=== PATIENT | female | born 1960 | race African-American/Black ===

== ENCOUNTER 2019-08-05 09:39 | Day surgery (SDC) | payer OTHER ==
[~2019-08-05 09:39] MED LIST: CEFAZOLIN SODIUM 2 GM in DEXTROSE 5%-WATER 100 ML IV PRN
[2019-08-05] MEDS ORDERED: BUPIVACAINE HCL 0.5 % INJ/PF 30 ML SDV ONE (10:07)
[2019-08-05] MEDS ORDERED: FENTANYL CITRATE INJ/PF 100 MCG/2 ML AMPUL ONE (10:12)
[2019-08-05] MEDS ORDERED: PROPOFOL INJ 200 MG/20 ML VIAL IV ONE ×2 (10:13→12:40)
[2019-08-05] MEDS ORDERED: ONDANSETRON HCL INJ/PF 4 MG/2 ML SDV ONE (10:13)
[2019-08-05] MEDS ORDERED: MIDAZOLAM 2 MG/2 ML INJ ONE (10:13)
[2019-08-05] MEDS ORDERED: DIPHENHYDRAMINE HCL 50 MG/ML VIAL IV PRN (12:51)
[2019-08-05] MEDS ORDERED: MEPERIDINE HCL/PF INJ 25 MG/1 ML DISP.SYRIN IV PRN (12:51)
[2019-08-05] MEDS ORDERED: OXYCODONE-ACETAMINOPHEN 5-325 MG TABLET PO PRN ×3 (12:51→14:23)
[2019-08-05] MEDS ORDERED: PROMETHAZINE HCL INJ 25 MG/1 ML VIAL IV PRN ×2 (12:51)
[2019-08-05] MEDS ORDERED: FENTANYL CITRATE INJ/PF 100 MCG/2 ML AMPUL IV PRN ×3 (12:51)
[2019-08-05] MEDS ORDERED: MORPHINE SULFATE 10 MG/ML INJ IV PRN (12:51)
--- NOTE | 2019-08-05 13:59 | Discharge Summary ---
Discharge Summary (SDC) - Discharge Final Diagnosis: Left distal radius fracture Date of Surgery: 08/05/19 Discharge Date: 08/05/19 Condition: Good Treatment or Instructions: Schedule Follow Up w/ Dr. Cr Cheng @ [facility] for Surgery to be seen in 10-14 days or as scheduled [place]: [place]: [place]: Vitamin C 500 mg for 51 days. Ice and elevate Keep splint clean/dry/intact, do not remove. If your fingers become numb please unwrap the [place] wrap but leave the splint in place, if the sensation does not return within 30 minutes please return to the emergency department. May begin finger range of motion attempting to make full fist. Please use ibuprofen (Motrin or Advil) 600-800 mg every 8 hours as needed for pain or fever DO NOT TAKE w/ TORADOL may use once TORADOL complete. You may also use acetaminophen (Tylenol) 1000 mg every 4-6 hours as needed for pain or fever. Please be aware that many medications contain acetaminophen, do not exceed a total of 1000 mg of acetaminophen every 6 hours. If ibuprofen and acetaminophen are not sufficient for your pain you may take the Percocet/Bayard. Please be aware that the Percocet/Bayard does contain Tylenol. Stool softener of choice when on pain medication. USE OF [id number] IBUPROFEN: Ibuprofen (Advil, Nuprin, Medipren, Motrin IB) is a medication for fever and pain control. In addition, it has anti- inflammatory effects which may be beneficial, especially in the treatment of injuries. It's best to take ibuprofen with food. Persons with ulcer disease or allergy to aspirin should notify their physician of this before taking ibuprofen. Ibuprofen can be given every four to six hours, for a total of four doses daily. Age Pain or fever dose Antiinflammatory dose 6-8 yr 200 mg (1 tab) 200 mg (1 tab) 9-11 yr 200 mg (1 tab) 200-400 mg (1-2 tab) 11-14 yr 200-400 mg (1-2 tab) 400 mg (2 tab) 15-adult 400 mg (2 tab) 600 mg (3 tab) ORAL NARCOTIC MEDICATION: You have been given a prescription for pain control. This medication is a narcotic. It's best taken with food, as nausea can result if taken on an empty stomach. Don't operate machinery or drive within six hours of taking this medicati on. Do not combine this medicine with alcohol, or with any medication which can cause sedation (such as cold tablets or sleeping pills) unless you get permission from the physician. Narcotics tend to cause constipation. If possible, drink plenty of fluids and eat a diet high in fiber and fruits. Please be aware that prescription narcotics also have the potential for abuse. People become addicted to these medications because of the general sense of wellbeing that they induce. This feeling along with a significant reduction in tension, anxiety, and aggression provides a stimulating seductive quality to these drugs. Once your pain is under control, we encourage you to discard your unused narcotics. Prescriptions: Oxycodone HCl/Acetaminophen [Percocet 7.5-325 mg Tablet] 1 tab PO Q6 PRN #25 tab PRN Reason: Discharge Diet: As Tolerated Respiratory Treatments at Home: Deep Breathing/Coughing Discharge Activity: No Lifting Over 10 Pounds, No Lifting/Push/Pulling Report the Following to Your Physician Immediately: Fever over 101 Degrees, Unusual Bleeding, Redness, Swelling, Warmth, Increased Soreness
--- NOTE | 2019-08-05 14:04 | Operative Report ---
Operative Report DATE OF SURGERY: 08/05/19 PREOPERATIVE DIAGNOSIS: Left extra-articular distal radius fracture POSTOPERATIVE DIAGNOSIS: Same DRUJ instability with TFCC tear OPERATION: ORIF left extra-articular distal radius fracture. Open TFCC repair left wrist SURGEON: DANA SANCHES ANESTHESIA: IV-Regional COMPLICATIONS: None ESTIMATED BLOOD LOSS: Minimal PROCEDURE: Indication for above procedure: 59-year-old female who sustained a fall onto her left wrist at the store. Patient had radiographs confirming distal radius fracture. Conservative measures was attempted including close reduction and casting which initially demonstrated maintained alignment but patient's fracture continue to demonstrate radial collapse with loss of inclination at that point decision was made to proceed with operative intervention. Procedure In Detail: Patient was seen and evaluated in the preoperative holding area. The LEFT upper extremity was initialized and marked. Patient received 2g of Ancef IV for bacterial prophylaxis. Patient was given a regional block in the preoperative wound area. Patient was taken back to the operative room where transferred to the operative table and placed under anesthesia. Once they were adequately anesthetized and a nonsterile tourniquet was placed on his upper extremity. A surgical team debriefing was performed ensuring all instrumentation was available, the surgical procedure was discussed with possible concerns reviewed. The upper extremity was prepped with chlorhexidine and alcohol and draped in a sterile fashion. A timeout was done identifying correct patient, procedure and extremity everyone in attendance agree with this and verbalized no concerns.The extremity was exsanguinated the tourniquet was inflated to 250 mmHg. A longitudinal skin incision was made via a volar approach of [place]loan along the FCR tendon sheath. The FCR tendon sheath was opened and the FCR retracted ulnarly, the palmar cutaneous branch of the median nerve was identified and protected throughout the entirety of the case. The radial artery was identified and retracted radially. Blunt dissection was performed to the FPL which was carefully sweeped ulnarly. This brought me to the pronator quadratus which was elevated off of the distal radius via sharp dissection with a 15 blade to allow later repair. There was evidence of healing of the fracture and thus osteoclasis was performed distal radius produced and provisionally fixed with K wires. Acceptable reduction was then obtained and a Acumed 3 hole volar distal radius plate was placed into position and fixated with a K wire distally x2. AP and lateral radiographs were then obtained demonstrating appropriate placement of the plate and acceptable reduction of the fracture. Using a reduction tenaculum I was able to bring the plate down to bone distally. After drilling distally a cortical screw was used bringing the plate further down to bone, avoiding any liftoff of the plate from the volar cortex that could cause flexor tendon irritation post-operativley. Drilling the near cortex and to but not thru the far cortex a locking screw was then placed in the remaining holes. The previous cortex screw was removed and replaced with a locking screw. Two additional screws were placed into the styloid giving further stability to the radial styloid piece. AP and lateral radius were then done confirming appropriate placement of plate with no evidence of penetration intra-articular or within the DRUJ. I then turned my attention to the proximal screws. I drilled bicortically bringing the plate down to bone with a cortex screw. The remaining 2 holes proximally were drilled bicortically placing the appropriate size cortex in the proximal most hole and a locking screw in the distal shaft hole. AP and lateral radiographs were done confirming appropriate placement of the plate and reduction of the fracture there was orthodox of radial height, radial inclination and volar tilt. No evidence of dorsal screw prominence or intra-articular penetration of the DRUJ or radiocarpal joint. The wound was copiously irrigated with normal saline. Intraoperative examination demonstrated negative Petty's test, No crepitus with range of motion at the radiocarpal joint or DRUJ. There was evidence of DRUJ instability compared to noninvolved right wrist and thus decision was made to proceed with TFCC repair. Longitudinal skin incision was made between the fifth and sixth dorsal compartment. Dorsal ulnar sensory branch was identified and retracted. Interval between the fifth and sixth dorsal compartment was utilized and capsule identified. T-shaped capsulotomy was made and the TFCC tear including the ligamentum subcruentum was identified. Under C arm fluoroscopy the ulnar fovea was confirmed including under direct visualization. A Arthrex 2.4 mm suture tack was utilized. The TFCC was then repaired with Santiago-Wu suture which did provide instability to the DRUJ. Capsule was closed with interrupted 2-0 FiberWire and 3-0 Vicryl. Retinaculum was closed with interrupted 3-0 Vicryl. Subcutaneous tissues were closed with 4-0 Monocryl suture. Skin was closed with running subcuticular 4-0 Monocryl reinforced with Dermabond and Steri-Strips at completion. Patient had improved DRUJ stability equivalent to noninvolved right wrist. The pronator quadratus was closed with interrupted 3-0 Monocryl suture. Tourniquet was deflated any peripheral bleeding was controlled with bipolar cautery. Subcutaneous tissues were closed with interrupted 4-0 Monocryl suture. The skin was closed with a running subcuticular 4-0 Monocryl suture which was reinforced with Dermabond and Steri-Strips. Was dressed with sterile 4 x 4's and patient was placed in a sugar tong splint maintaining supination. Sponge counts, instrument counts and needle counts were correct. There was no intraoperative complications patient tolerated procedure well stable to PACU. Postoperative plan: Patient will be set up with occupational therapy in the next 10 days to be fitted for a [place] splint maintaining supination. We will continue occupational therapy as per [facility] repair protocol.
[2019-08-05] MEDS ORDERED: ONDANSETRON HCL INJ/PF 4 MG/2 ML SDV IV PRN (14:23)
--- NOTE | 2019-08-05 14:48 | RADIOLOGY REPORT (SQ) ---
EXAM DESCRIPTION: WRIST LEFT 2 VIEWS; NO CHG FLUORO IMAGES COMPLETED DATE/TIME: 08/05/2019 2:26 pm REASON FOR STUDY: ORIF LEFT WRIST ASST WITH FLUOROSCOPY IN OR COMPARISON: None. FLUOROSCOPY TIME: 1 minutes 21 seconds Spot images saved to PACS. TECHNIQUE: Intra-operative images acquired during surgical procedure to evaluate progress. NUMBER OF IMAGES: 3 LIMITATIONS: None. FINDINGS: Fluoroscopy was provided for intraoperative procedure. Please refer to the operative repo rt for further discussion. IMPRESSION: IMAGE(S) OBTAINED DURING PROCEDURE. COMMENT: Quality ID [id number]: Final reports for procedures using fluoroscopy that document radiation exp osure indices, or exposure time and number of fluorographic images (if radiation exposure indices are not available) Please consult full operative report of the attending physician for description of the procedure. TECHNICAL DOCUMENTATION: JOB ID: [id number] 2010 [employer]- All Rights Reserved Reading location - IP/workstation name: [email or web address]
--- NOTE | 2019-08-05 14:48 | RADIOLOGY REPORT (SQ) ---
EXAM DESCRIPTION: WRIST LEFT 2 VIEWS; NO CHG FLUORO IMAGES COMPLETED DATE/TIME: 08/05/2019 2:26 pm REASON FOR STUDY: ORIF LEFT WRIST ASST WITH FLUOROSCOPY IN OR COMPARISON: None. FLUOROSCOPY TIME: 1 minutes 21 seconds Spot images saved to PACS. TECHNIQUE: Intra-operative images acquired during surgical procedure to evaluate progress. NUMBER OF IMAGES: 3 LIMITATIONS: None. FINDINGS: Fluoroscopy was provided for intraoperative procedure. Please refer to the operative repo rt for further discussion. IMPRESSION: IMAGE(S) OBTAINED DURING PROCEDURE. COMMENT: Quality ID [id number]: Final reports for procedures using fluoroscopy that document radiation exp osure indices, or exposure time and number of fluorographic images (if radiation exposure indices are not available) Please consult full operative report of the attending physician for description of the procedure. TECHNICAL DOCUMENTATION: JOB ID: [id number] 2010 [employer]- All Rights Reserved Reading location - IP/workstation name: [email or web address]
[2019-08-05 16:12] VITALS: BP 146/61
== END 2019-08-05 16:06 | disposition home or self-care (01) ==
LOC: OROUT 09:39
PROVIDERS: ATTEND Orthopaedic Surgery
DX: S52.552A Other extraarticular fracture of lower end of left radius, initial encounter for closed fracture (principal); S63.592A Other specified sprain of left wrist, initial encounter; W19.XXXA Unspecified fall, initial encounter; M25.332 Other instability, left wrist; M25.532 Pain in left wrist; I10 Essential (primary) hypertension; E11.9 Type 2 diabetes mellitus without complications; K21.9 Gastro-esophageal reflux disease without esophagitis; J44.9 Chronic obstructive pulmonary disease, unspecified; F17.210 Nicotine dependence, cigarettes, uncomplicated; Z88.9 Allergy status to unspecified drugs, medicaments and biological substances; Z79.51 Long term (current) use of inhaled steroids; Z79.4 Long term (current) use of insulin; Z79.899 Other long term (current) drug therapy
CPT/HCPCS: 82962; 73100; 01830; 25607; 25337; C1713 ×11; C1769; J2250; J3490; J0690; J2405; J7060; J2704; J3010

== ENCOUNTER 2019-11-17 12:11 | Day surgery (SDC) | payer OTHER ==
--- NOTE | 2019-11-12 10:39 | EKG REPORT ---
SEVERITY:- ABNORMAL ECG - SINUS RHYTHM CONSIDER INFERIOR INFARCT NONSPECIFIC T ABNORMALITIES, ANT-LAT LEADS : Confirmed by: El Reich MD 12-Nov-2019 10:38:37
[2019-11-12 10:51] LABS: HEMATOCRIT 41.1 % (36.0-47.0); HEMOGLOBIN 13.8 g/dL (12.0-15.5); MEAN CORPUSCULAR HEMOGLOBIN 29.8 pg (27.0-33.4); MEAN CORPUSCULAR HGB CONC 33.6 g/dL (32.0-36.0); MEAN CORPUSCULAR VOLUME 89 fl (80-97); PLATELET COUNT 271 10^3/uL (150-450); RED BLOOD COUNT 4.64 10^6/uL (3.72-5.28); RED CELL DISTRIBUTION WIDTH 13.8 % (11.5-14.0); WHITE BLOOD COUNT 9.8 10^3/uL (4.0-10.5)
[2019-11-12 10:54] LABS: APPEARANCE,URINE CLEAR; BILIRUBIN,URINE NEGATIVE (NEGATIVE); COLOR,URINE YELLOW; GLUCOSE, URINE NEGATIVE (NEGATIVE); KETONES,URINE NEGATIVE (NEGATIVE); LEUKOCYTE ESTERASE,URINE NEGATIVE (NEGATIVE); NITRITE,URINE NEGATIVE (NEGATIVE); PROTEIN,URINE NEGATIVE (NEGATIVE); URINE SPECIFIC GRAVITY 1.029
[2019-11-12 11:07] LABS: ANION GAP 6 (5-19); BLOOD UREA NITROGEN 12 mg/dL (7-20); CALCIUM 9.9 mg/dL (8.4-10.2); CARBON DIOXIDE 28 mmol/L (22-30); CHLORIDE 105 mmol/L (98-107); GLUCOSE 140 mg/dL (75-110); POTASSIUM 3.6 mmol/L (3.6-5.0)
--- NOTE | 2019-11-12 12:55 | RADIOLOGY REPORT (SQ) ---
EXAM DESCRIPTION: CHEST PA/LATERAL IMAGES COMPLETED DATE/TIME: 11/12/2019 10:56 am REASON FOR STUDY: PRE-OP COMPARISON: None. EXAM PARAMETERS: NUMBER OF VIEWS: two views TECHNIQUE: Digital Frontal and Lateral radiographic views of the chest acquired. RADIATION DOSE: NA LIMITATIONS: none FINDINGS: LUNGS AND PLEURA: No opacities, masses or pneumothorax. No pleural effusion. MEDIASTINUM AND HILAR STRUCTURES: No masses or contour abnormalities. HEART AND VASCULAR STRUCTURES: Heart normal size. No evidence for failure. BONES: No acute findings. HARDWARE: None in the chest. OTHER: No other significant finding. IMPRESSION: NO SIGNIFICANT RADIOGRAPHIC FINDING IN THE CHEST. TECHNICAL DOCUMENTATION: JOB ID: [id number] 2010 [employer]- All Rights Reserved Reading location - IP/workstation name: [email or web address]
[~2019-11-17 12:11] MED LIST changes: +CEFAZOLIN 2 GM/D5W RTU 2 GM/50 ML RTUPB IV PRN; -CEFAZOLIN SODIUM 2 GM in DEXTROSE 5%-WATER 100 ML IV PRN; +FENTANYL CITRATE INJ/PF 100 MCG/2 ML AMPUL ONE; +LACTATED RINGERS 1000 ML IV PRN; +LIDOCAINE 0.5% INJ-PF (5 MG/ML) 50 ML SDV SUBCUT PRN; +MIDAZOLAM 2 MG/2 ML INJ ONE; +PROPOFOL INJ 200 MG/20 ML VIAL IV ONE
[2019-11-17] MEDS ORDERED: CEFAZOLIN 2 GM/D5W RTU 2 GM/50 ML RTUPB IV ONE (12:26)
[2019-11-17] MEDS ORDERED: BUPIVACAINE HCL 0.5 % INJ/PF 30 ML SDV ONE (15:52)
[2019-11-17] MEDS ORDERED: LIDOCAINE 1%/EPINEPHRINE INJ 20 ML VIAL ONE (15:52)
[2019-11-17] MEDS ORDERED: MEPERIDINE HCL/PF INJ 25 MG/1 ML DISP.SYRIN IV PRN (16:25)
[2019-11-17] MEDS ORDERED: DIPHENHYDRAMINE HCL 50 MG/ML VIAL IV PRN (16:25)
[2019-11-17] MEDS ORDERED: PROMETHAZINE HCL INJ 25 MG/1 ML VIAL IV PRN ×2 (16:25)
[2019-11-17] MEDS ORDERED: FENTANYL CITRATE INJ/PF 100 MCG/2 ML AMPUL IV PRN ×3 (16:25)
--- NOTE | 2019-11-17 16:36 | Discharge Summary ---
Discharge Summary (SDC) - Discharge Final Diagnosis: Left lateral meniscal tear Date of Surgery: 11/17/19 Discharge Date: 11/17/19 Condition: Good Treatment or Instructions: Weightbearing as tolerated ambulation. Remove compressive wrap on Sunday. Once the compressive wrap is removed the old wound will be a clear plastic dressing called and OpSite the needed. You can shower once the compressive wrap is removed. Please do not immerse the extremity or put it in a pool. The OpSite dressing can remain in place until you return to the office. Prescriptions: Oxycodone HCl/Acetaminophen [Percocet 5-325 mg Tablet] 1 tab PO Q6 PRN #25 tab PRN Reason: Discharge Diet: Regular Respiratory Treatments at Home: Deep Breathing/Coughing Discharge Activity: Activity As Tolerated, Balance Activity w/Rest, No tub bath Home Care Assistance: None Needed Report the Following to Your Physician Immediately: Shortness of Breath, Fever over 101 Degrees, Drainage-Foul Smelling
--- NOTE | 2019-11-17 16:38 | Operative Report ---
Operative Report DATE OF SURGERY: 11/17/19 PREOPERATIVE DIAGNOSIS: Left lateral meniscal tear POSTOPERATIVE DIAGNOSIS: Left lateral meniscal tear. 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 Intact ACL. Medial meniscal tear. 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 Knee is insufflated with a combination of Marcaine, Xylocaine, and epinephrine. Subsequent medial lateral and patella portals are created for the introduction the arthroscope and debridements mentation. Joint is examined in systematic fashion findings as above. Using combination mechanical shaver and electric frequency ablation probe a partial lateral meniscectomy performed from proxy 12:00 to 6:00 on the face of the dial. Similarly a partial medial meniscectomy performed from proxy 9:00 to 12:00 on the face of the dial. Joint is again examined in systematic fashion with no new findings and under loose bodies. Instrumentation was removed. Portals reapproximated erupted nylon. Sterile compressive dressings applied. The patient is returned to PACU in satisfactory condition.
[2019-11-17] MEDS ORDERED: OXYCODONE-ACETAMINOPHEN 5-325 MG TABLET PO PRN (17:15)
[2019-11-17 18:24] VITALS: BP 128/60
== END 2019-11-17 18:30 | disposition home or self-care (01) ==
LOC: OROUT 12:11
PROVIDERS: ATTEND Orthopaedic Surgery
DX: M23.301 Other meniscus derangements, unspecified lateral meniscus, left knee (principal); M23.304 Other meniscus derangements, unspecified medial meniscus, left knee; M22.42 Chondromalacia patellae, left knee; J45.20 Mild intermittent asthma, uncomplicated; E11.9 Type 2 diabetes mellitus without complications; I10 Essential (primary) hypertension; F17.210 Nicotine dependence, cigarettes, uncomplicated; E66.9 Obesity, unspecified; R01.1 Cardiac murmur, unspecified; Z88.8 Allergy status to other drugs, medicaments and biological substances; Z79.899 Other long term (current) drug therapy; Z79.4 Long term (current) use of insulin; Z03.818 Encounter for observation for suspected exposure to other biological agents ruled out
CPT/HCPCS: 93005; 36415 ×2; 82962; 84132; 85027; 87635; 80048; 81001; 71046; 93010; 29880; J2250; J3490 ×2; J3010; J2704; J0690; C9803